=== PATIENT | male | born 1960 | race Caucasian/White ===

== ENCOUNTER 2021-10-15 15:54 | Outpatient (CLI) | payer OTHER, MEDICARE, SELFPAY | END 2021-10-15 15:55 | disposition home or self-care (01) | LOC: AMB 10-27 21:30 | PROVIDERS: PCP Family Medicine; Visit Provider Internal Medicine | DX: S09.90XA Unspecified injury of head, initial encounter (principal); R41.82 Altered mental status, unspecified; V09.9XXA Pedestrian injured in unspecified transport accident, initial encounter; Y92.413 State road as the place of occurrence of the external cause; Y93.55 Activity, bike riding | CPT/HCPCS: A0425; A0427 ==

== ENCOUNTER 2021-10-15 16:13 | Emergency (ER) | payer MEDICARE, OTHER, SELFPAY ==
[2021-10-15] VITALS (16 sets, daily range): BP systolic 153–162; BP diastolic 82–89; PULSE 60–72; RESP 11–27; TEMP 36.3; O2SAT 94–100; BMI 23.7
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
--- NOTE | 2021-10-15 16:30 | ED.NURSE ---
Pt in CT scanner. Pt became confused and uncooperative while in the CT scanner, attempting to get up. Several imaging staff and security assisted in holding pt, notified. MD ordered IM med, technical writer and editor left to draw up med. Upon return, pt was standing with assistance and urinating into urinal. After urinating, pt calm and cooperative, able to lay still for scan. IM med not given.
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
[2021-10-15 17:08] LABS: Basophils Absolute Auto 0.04 K/uL (0.00-0.30); Basophils Percent Auto 0.6 % (0.0-3.0); Eosinophils Absolute Auto 0.19 K/uL (0.00-0.50); Eosinophils Percent Auto 3.1 % (0.0-7.0); Hematocrit 44.3 % (37.0-53.0); Immature Granulocytes Abs Auto 0.02 K/uL (0.00-0.30); Lymphocytes Absolute Auto 1.84 K/uL (0.90-2.90); Lymphocytes Percent Auto 29.7 % (20-44); Mean Corpuscular HGB Conc 34 gm/dL (32-36); Mean Corpuscular Hemoglobin 31 pg (26-34); Mean Corpuscular Volume 90 fL (80-100); Monocytes Percent Auto 9.2 % (0.0-11.0); Neutrophils Absolute Auto 3.54 K/uL (1.7-7.0); Neutrophils Percent Auto 57.1 % (42.0-72.0); Platelet Count* 246 K/uL (140-440); RDW Coefficient of Variation % 12.8 % (11.5-15.5); Red Blood Count 4.91 m/uL (4.30-5.90)
[2021-10-15 17:18] LABS: Slide Review Reflex No
[2021-10-15 17:21] LABS: Albumin* 4.8 g/dL (3.3-5.0); Chloride* 105 mmol/L (96-114); Potassium* 4.5 mmol/L (3.6-5.1); Sodium* 141 mmol/L (135-149)
[2021-10-15 17:23] LABS: Amylase* 92 U/L (18-89); Carbon Dioxide* 23 mmol/L (20-32); Est. Creatinine Clearance* 81.58; Estimated Glomerular Filt Rate 85 ml/min; Total Protein* 7.8 g/dL (6.0-8.3)
[2021-10-15 17:24] LABS: Alanine Aminotransferase* 22 U/L (4-50); Alkaline Phosphatase* 61 U/L (40-150); Aspartate Amino Transferase* 44 U/L (12-35); Blood Urea Nitrogen* 26 mg/dL (7-30); Calcium* 9.3 mg/dL (8.4-10.6); Glucose* 123 mg/dL (60-115)
[2021-10-15 17:25] LABS: Ethanol* < 0.01 % (0.01-0.03)
[2021-10-15 17:27] LABS: Appearance Urine Clear (Clear); Bilirubin Urine Negative (Negative); Blood Urine Trace-intact (Negative); Color Urine Yellow (Yellow); Glucose Urine Negative (Negative); Ketones Urine Trace (Negative); Leukocyte Esterase Urine Negative (Negative); Nitrite Urine Negative (Negative); Protein Urine Negative (Negative); Specific Gravity Urine >= 1.030 (1.000-1.030); Urobilinogen Urine 0.2 (0.2-1.0)
[2021-10-15 17:34] LABS: Amphetamine Screen Urine Negative (Negative); Barbiturate Screen Urine Negative (Negative); Benzodiazepines Screen Urine Negative (Negative); Cannabinoid Screen Urine Negative (Negative); Cocaine Screen Urine Negative (Negative); Methadone Screen Urine Negative (Negative); Methamphetamines Screen Urine Negative (Negative); Opiate Screen Urine Negative (Negative); Oxycodone Screen Urine Negative (Negative); Phencyclidine Screen Urine Negative (Negative); Tricyclic Antidepressant Urine Negative (Negative)
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
[2021-10-15 17:50] LABS: WBC Urine 0-2 (0-5)
--- NOTE | 2021-10-15 19:09 | ED.NURSE ---
Pt requested I contact his case management assistant Tyra and update her. Contacted Tyra, no answer, left a brief message with details of pt visit. Pt cannot think of anyone in town he knows that can pick him up. informed. spoke with pt, pt okay with getting a cab to take him home. okay with this plan.
--- NOTE | 2021-10-15 19:29 | ED.NURSE ---
Pt changed into clean paper scrubs, Medium sling applied to pt R arm. Pt ambulated to the restroom without assistance, tolerated ambulation well.
== END 2021-10-15 19:43 | disposition home or self-care (01) ==
PROVIDERS: Emergency Provider Internal Medicine; PCP Family Medicine
DX: F07.81 Postconcussional syndrome (principal); S42.001A Fracture of unspecified part of right clavicle, initial encounter for closed fracture; V13.4XXA Pedal cycle driver injured in collision with car, pick-up truck or van in traffic accident, initial encounter
CPT/HCPCS: 36415; 70450; 71250; 72125; 74176; 80053; 80306; 81003; 81015; 82077; 82150; 85025; 99284; 99285; 99291; G0390